=== PATIENT | male | born 1980 | race Caucasian/White ===

== ENCOUNTER 2017-11-05 13:51 | Emergency (ER) | payer MEDICAID ==
[2017-11-05] MEDS ORDERED: Lidocaine 2% 20 ML MDV INFILT ONE (13:52)
[2017-11-05] MEDS ORDERED: Diphtheria,Pertussis(Acell),Tetanus Vaccine 0.5 ML SDV IM ONE (13:58)
--- NOTE | 2017-11-05 13:59 | EDM.PDOC ---
ED HPI GENERAL MEDICAL PROBLEM - General Chief Complaint: Laceration Stated Complaint: LEFT HAND Time Seen by Provider: 11/05/17 13:51 Source of Information: Reports: Patient History Limitations: Reports: No Limitations - History of Present Illness INITIAL COMMENTS - FREE TEXT/NARRATIVE: 37 y.o.w.m came to the ed 24 hours after he injured his left middle finger at home while repaired an engine(?). He washed the wound with peroxide several times in the past 24 hours. Pt has FROM of his fingers, with some discomfort, however. No N/V/D or any other acute medical issues. BP 143/96 RR 14 Pulse 80 Temp 36.7 Pulse ox 100% on RA Onset Date: 11/04/17 Onset Time: 07:00 Duration: Day(s): Location: Reports: Upper Extremity, Left (3rd finger) Quality: Reports: Dull Severity: Mild Improves with: Reports: Rest Worsens with: Reports: Movement Context: Reports: Trauma Associated Symptoms: Reports: No Other Symptoms Treatments SEROLOGIST: Reports: Other (see below) (pt washed the wound severeal times with betadiene SEROLOGIST) left mid finger Pain Score (Numeric/FACES): 1 - Related Data Allergies Allergy/AdvReac Type Severity Reaction Status Date / Time No Known Allergies Allergy Verified 11/05/17 13:57 Home Meds: Home Meds Cephalexin [Keflex] 500 mg PO Q6H #40 cap 11/05/17 [Rx] Past Medical History Other Musculoskeletal History: DJD Other Neuro History: hx skull fx ED ROS GENERAL - Review of Systems Review Of Systems: See Below Constitutional: Reports: No Symptoms HEENT: Reports: No Symptoms Respiratory: Reports: No Symptoms Cardiovascular: Reports: No Symptoms Endocrine: Reports: No Symptoms GI/Abdominal: Reports: No Symptoms : Reports: No Symptoms Musculoskeletal: Reports: No Symptoms Skin: Reports: Wound (left middle finger middle phalanx Laceration) Neurological: Reports: No Symptoms Psychiatric: Reports: No Symptoms Hematologic/Lymphatic: Reports: No Symptoms Immunologic: Reports: No Symptoms ED EXAM, SKIN/RASH Exam: See Below Exam Limited By: No Limitations General Appearance: Alert, WD/WN, Mild Distress Eye Exam: Bilateral Eye: Normal Inspection Ears: Normal External Exam Nose: Normal Inspection Throat/Mouth: Normal Inspection, Normal Lips, Normal Gums, Normal Voice, No Airway Compromise Head: Atraumatic, Normocephalic Neck: Normal Inspection, Supple, Non-Tender, Full Range of Motion Respiratory/Chest: No Respiratory Distress, Lungs Clear, Normal Breath Sounds, No Accessory Muscle Use, Chest Non-Tender Cardiovascular: Normal Peripheral Pulses, Regular Rate, Rhythm, No Edema, No Gallop, No JVD, No Murmur, No Rub Peripheral Pulses: 1+: Brachial (L) GI/Abdominal: Normal Bowel Sounds, Soft, Non-Tender (Male) Exam: Deferred Rectal (Males) Exam: Deferred Back Exam: Normal Inspection Extremities: Normal Range of Motion, Normal Capillary Refill, Other (LAC left middle finger) Neurological: Alert, Oriented, CN II-XII Intact, Normal Cognition, Normal Gait, No Motor/Sensory Deficits Psychiatric: Normal Affect, Normal Mood Location, Skin: Upper Extremity, Left (left finger LAC, dorsal aspect and abrasion volar aspect) Lymphatic: No Adenopathy ED SKIN PROCEDURES - Laceration/Wound Repair Left Middle Finger Lac/Wound length In cm: 1 Appearance: Irregular, Other (24 old wound, disfiguaring) Distal NVT: Neuro & Vascular Intact, No Tendon Injury Anesthetic Type: Local Local Anesthesia - Lidocaine (Xylocaine): 2% Plain Local Anesthetic Volume: 3cc Exploration/Debridement/Repair: Wound Explored, In a Bloodless Field, Explored to Base Suture Size: 4-0 # of Sutures: 3 Suture Type: Interrupted, Other (ethilone) Tetanus Status Addressed: Yes (given today) Complications: No Course - Vital Signs Text/Narrative:: 37 y.o.w.m came to the ed 24 hours after he injured his left middle finger at home while repaired an engine(?). He washed the wound with peroxide several times in the past 24 hours. Pt has FROM of his fingers, with some discomfort, however. No N/V/D or any other acute medical issues. BP 143/96 RR 14 Pulse 80 Temp 36.7 Pulse ox 100% on RA PE: WNWD muscular W M with a laceration left middle finger 24 old Procedure: Please see note above Imaging: Left hand/fingers: NAD, No FB seen Impression: Laceration left middle finger, dorsal aspect, abrasion left middle finger volar aspect. Tx: TD, Luciana, wound repair/care Reexam: Improved Plan: D/C with instructions Last Recorded V/S: Last Vital Signs Temp 36.9 C 11/05/17 15:09 Pulse 75 11/05/17 15:09 Resp 14 11/05/17 15:09 BP 128/95 H 11/05/17 15:09 Pulse Ox 99 11/05/17 15:09 - Orders/Labs/Meds Orders: Active Orders 24 hr Category Date Time Status Vaccines to be Administered [RC] PER UNIT ROUTINE Care 11/05/17 13:58 Active Fingers Third Digit Lt F2 [CR] Stat Exams 11/05/17 13:57 Taken Meds: Medications Discontinued Medications Generic Name Dose Route Start Last Admin Trade Name Cate PRN Reason Stop Dose Admin Ceftriaxone Sodium 1,000 mg 11/05/17 14:36 11/05/17 14:56 Rocephin IM 11/05/17 14:37 1,000 mg ONETIME ONE Administration Diphtheria/Tetanus/Acell Pertussis 0.5 ml 11/05/17 13:58 11/05/17 14:55 Adacel IM 11/05/17 13:59 0.5 ml .ONCE ONE Administration Departure - Departure Time of Disposition: 14:59 Disposition: Home, Self-Care 01 Condition: Good Clinical Impression: Laceration - Discharge Information Prescriptions: Cephalexin [Keflex] 500 mg PO Q6H #40 cap Instructions: Laceration Care, Adult, Cephalexin tablets or capsules, Stitches , [place], or Adhesive Wound Closure, [id number] Referrals: Gerhard Wong MD [Primary Care Provider] - Forms: ED Department Discharge, ED Return to Work/School Form Additional Instructions: Please take Keflex as recommended, please apply neosporine to wound twice daily. Wound check in 2 days, please keep the finger extended, avoid bending left middle finger, Suture removal in 10-14 days, avoid wound wound clean. please come back if your symptoms get worse acutely - My Orders Last 24 Hours: My Active Orders 11/05/17 13:57 Fingers Third Digit Lt F2 [CR] Stat 11/05/17 13:58 Vaccines to be Administered [RC] PER UNIT ROUTINE - Assessment/Plan Last 24 Hours: My Active Orders 11/05/17 13:57 Fingers Third Digit Lt F2 [CR] Stat 11/05/17 13:58 Vaccines to be Administered [RC] PER UNIT ROUTINE
[2017-11-05] MEDS ORDERED: cefTRIAXone 1,000 MG VIAL IM ONE (14:36)
[2017-11-05 15:10] VITALS: BP 128/95
--- NOTE | 2017-11-08 13:07 | CR ---
INDICATION: Foreign body, fracture trauma, cut middle knuckle third finger. LEFT THIRD DIGIT: Three views of the left third finger revealed evidence of soft tissue laceration at the dorsal aspect of the PIPJ. A fracture, dislocation, or other acute bone or joint abnormality was not identified. Minimal degenerative changes are noted at the third metacarpophalangeal joint. MTDD
== END 2017-11-05 15:12 | disposition home or self-care (01) ==
LOC: FB.ED 13:51
DX: S61.213A Laceration without foreign body of left middle finger without damage to nail, initial encounter (principal); Z23 Encounter for immunization; X58.XXXA Exposure to other specified factors, initial encounter
CPT/HCPCS: 12001; 73140; 90471; 90715; 96372; 99282; J0696